=== PATIENT | male | born 1995 | race Caucasian/White ===

== ENCOUNTER 2021-07-26 14:30 | Emergency (ER) | payer SELFPAY | END 2021-07-26 15:23 | disposition home or self-care (01) | LOC: MADERS 14:30 | DX: S90.32XA Contusion of left foot, initial encounter (principal); W21.07XA Struck by softball, initial encounter ==

== ENCOUNTER 2021-12-06 09:21 | Emergency (ER) | payer SELFPAY ==
[2021-12-06] MEDS ORDERED: Lidocaine 1%/Epinephrine 1:100K 10 ML VIAL ONE (09:50)
== END 2021-12-06 10:36 | disposition home or self-care (01) ==
LOC: MADERS 09:21
DX: L02.415 Cutaneous abscess of right lower limb (principal)
CPT/HCPCS: 10060; 87070; 87186; 87205